=== PATIENT | female | born 1975 ===

== ENCOUNTER 2017-03-14 12:25 | Day surgery (SDC) | payer MEDICAID, OTHER ==
[2017-03-14 13:26] VITALS: BMI 35.3
[2017-03-14] MEDS ORDERED: Midazolam 2 MG/2 ML VIAL ONE ×2 (18:58)
[2017-03-14] MEDS ORDERED: Lidocaine 2% Inj (20ml) ONE (19:15)
[2017-03-14] MEDS ORDERED: Sodium Chloride 0.9% 1,000 ML IV ONE (19:54)
[2017-03-14 20:19] VITALS: TEMP 98
[2017-03-14 22:11] VITALS: O2SAT 100
[2017-03-14 22:46] VITALS: BP 104/68; PULSE 69; RESP 27
--- NOTE | 2017-03-21 09:18 | CATH ---
APPROVED REPORT Procedure(s) performed: Left Heart Catheterization Selective Right and Left Coronary Angiography Left Ventriculogram HISTORY The patient is a 41 year-old female with a history of : hypertension, family history of premature CAD, ADMITED WITH NSTEMI. INDICATION The indication(s) include : palpitations, murmur, non-STEMI (>48 hrs to = 72 hrs), chest pain, dizziness and vertigo. CASE TECHNIQUE The patient was brought electively to the Cardiac Catheterization Laboratory in a fasting state and was prepped and draped in a sterile manner. The right femoral groin was infiltrated with 2% Lidocaine subcutaneous anesthesia. A 7 LITHUANIAN sheath was inserted into the right femoral artery without difficulty. Coronary angiography was performed using coronary diagnostic catheters. The left coronary system was accessed and visualized with a Diagnostic catheter. The right coronary system was accessed and visualized with a Diagnostic catheter. The left ventricle was accessed and visualized with a Diagnostic catheter. Left ventriculogram was performed in MONGOLIAN projection. Closure device was deployed with a Fr Angioseal without any complications. The patient tolerated the procedure well and there were no complications associated with the procedure. Vessel Analysis The patient's coronary anatomy is right dominant. The left main coronary artery is a mediumsmall size vessel appearing normal. The left main bifurcates to the left anterior descending and circumflex. The left anterior descending artery is a mediumlarge size vessel without stenosis. The circumflex artery is a large size vessel without stenosis. The right coronary artery is a medium size vessel without stenosis. Left Ventricle The left ventricle is normal in size with normal contractility. The left ventricular ejection fraction is estimated to be 75%. The left ventricular end diastolic pressure is 15 mmHg. There was no gradient across the aortic valve upon pullback. Conclusion NO EVIDENCE OF SIGNIFICANT OBSTRUCTIVE CAD NML EF LVEDP 15MMHG Recommendations Cardiac Risk Reduction Program Weight Loss Reduction ProgramMedical Therapy
== END 2017-03-14 22:42 | disposition home or self-care (01) ==
LOC: C.CATHLAB 12:25
PROVIDERS: ATTEND Internal Medicine Cardiovascular Disease
DX: I21.4 Non-ST elevation (NSTEMI) myocardial infarction (principal); I10 Essential (primary) hypertension
CPT/HCPCS: 93458; C1760; C1769; C1887; J1644; J2250; J3010; J7040; Q9967